=== PATIENT | male | born 1975 | race Caucasian/White ===

== ENCOUNTER → 2020-05-14 10:05 | Outpatient (CLI) | payer OTHER, SELFPAY ==
--- NOTE | ~2020-05-14 | XR_ITS ---
XR lumbar spine 2-3V 05/14/2020 10:47 Indication: Low back pain Procedure: 3 views lumbar spine Comparison: No prior studies for comparison. Findings: There is mild levocurvature of the lumbar spine. There is disc narrowing at L5-S1. No acute fracture, subluxation or dislocation. Pedicles intact. Sacral foramen are symmetric. No evidence for spondylolisthesis. Impression: 1: Mild lumbar spondylosis. Reviewed, dictated and finalized at location A. Impression: 1: Mild lumbar spondylosis.
== END ==
PROVIDERS: PCP Family Medicine; Visit Provider Physician Assistant
DX: M47.26 Other spondylosis with radiculopathy, lumbar region (principal)
CPT/HCPCS: 72100

== ENCOUNTER 2020-10-29 16:19 | Outpatient (CLI) | payer OTHER, SELFPAY | END 2020-10-29 16:20 | disposition home or self-care (01) | LOC: ANHCOVIDVC 16:19 | PROVIDERS: PCP Family Medicine | DX: Z23 Encounter for immunization (principal) | CPT/HCPCS: 0001A; 91300 ==

== ENCOUNTER 2020-11-19 16:16 | Outpatient (CLI) | payer OTHER, SELFPAY | END 2020-11-19 16:17 | disposition home or self-care (01) | LOC: ANHCOVIDVC 16:17 | PROVIDERS: PCP Family Medicine | DX: Z23 Encounter for immunization (principal) | CPT/HCPCS: 0002A; 91300 ==

== ENCOUNTER 2022-04-28 08:35 | Outpatient (CLI) | payer OTHER, SELFPAY ==
--- NOTE | 2022-04-28 08:50 | ECG_ITS ---
Measurements Intervals [place] Rate: 80 P: 40 OR: 166 QRS: 43 QRSD: 97 T: 38 QT: 345 QTc: 399 Interpretive Statements SINUS RHYTHM NORMAL ECG NO PREVIOUS ECG AVAILABLE FOR COMPARISON Electronically Signed On 04-28-2022 12:35:19 CDT by Kevin Hill D.O.
== END 2022-04-28 08:36 | disposition home or self-care (01) ==
LOC: ANHCARD 08:38
PROVIDERS: PCP Family Medicine; Visit Provider Family Medicine
DX: I45.4 Nonspecific intraventricular block (principal)
CPT/HCPCS: 93005

== ENCOUNTER → 2023-08-16 08:47 | Outpatient (CLI) | payer OTHER, SELFPAY ==
--- NOTE | ~2023-08-16 | US_ITS ---
EXAMINATION:US venous doppler LE RT INDICATION:Right leg pain TECHNIQUE: Multiple grayscale, color flow and Doppler images of the right lower extremity deep venous systems were obtained and reviewed. COMPARISON:No prior studies for comparison. FINDINGS: The common femoral, superficial femoral and popliteal veins demonstrate normal respiratory variation, augmentation and compressibility. Color flow is also seen within the posterior tibial, pe roneal, greater saphenous and profunda veins. IMPRESSION: 1: No lower extremity deep venous thrombosis. Reviewed, dictated and finalized at location L. RT [employer]
== END ==
PROVIDERS: PCP Physician Assistant Medical; Visit Provider Physician Assistant Medical
DX: M79.661 Pain in right lower leg (principal)
CPT/HCPCS: 93971

== ENCOUNTER 2024-01-04 07:46 | Outpatient (CLI) | payer OTHER, SELFPAY ==
--- NOTE | ~2024-01-04 | US_ITS ---
Limited Abdominal Sonogram: Real-time sonographic imaging of the right upper quadrant was performed. Clinical History: Abnormal findings of blood chemistry Findings: The liver appears echogenic, with no evidence of mass lesion or bile duct dilatation. Main portal vein demonstrates normal direction of flow. The gallbladder is well distended, and demonstrat es 4 mm gallbladder wall polyp. The common bile duct measures 3 mm. The visualized pancreas, aorta, and IVC are unremarkable. Right kidney measures 11.3 cm in length, without hydronephrosis. Impression: Diffuse fatty infiltration of liver. 4 mm gallbladder wall polyp. Reviewed, dictated and finalized at location M. Impression: Diffuse fatty infiltration of liver. 4 mm gallbladder wall polyp.
== END 2024-01-04 07:47 ==
PROVIDERS: PCP Family Medicine; Visit Provider Physician Assistant Medical
DX: R79.89 Other specified abnormal findings of blood chemistry (principal); K76.0 Fatty (change of) liver, not elsewhere classified; K82.4 Cholesterolosis of gallbladder
CPT/HCPCS: 76705

== ENCOUNTER 2025-02-06 08:13 | Outpatient (CLI) | payer OTHER, SELFPAY ==
--- NOTE | ~2025-02-06 | US_ITS ---
Limited ABDOMINAL ULTRASOUND (Doppler ultrasound interrogation techniques used as needed for this zuri m.) Ordering provider: Vivien Mariano MD History: . K82.4 - Cholesterolosis of gallbladder . Comparison: None. FINDINGS: PANCREAS: Not well visualized. PORTAL VEIN: Hepatopedal flow demonstrated. LIVER: Normal size and increased echogenicity.. No focal hepatic lesions or perihepatic fluid collect ions are identified. BILIARY DUCTS: No intra or extrahepatic biliary dilation. Common bile duct measures 3 mm in diameter which is normal for patient's age. GALLBLADDER: Echogenic foci which are not moving or shadowing.. No stones, sludge, gallbladder wall t hickening or pericholecystic fluid. Wall thickness is 0.14 cm. Negative sonographic Whitten's sign. RIGHT KIDNEY: Normal size. Measures 11.3 cm. No hydronephrosis, solid renal mass, renal calculi or pe rinephric fluid collections. No renal cysts. Inferior vena cava: Normal. Abdominal aorta: Normal. FREE FLUID: None visualized within the upper abdomen. IMPRESSION: Fat infiltration of the liver. Highly suggestive of adenomyomatosis of the gallbladder. Otherwise, no rmal right upper quadrant ultrasound. Reviewed, dictated and finalized at location A. IMPRESSION: Fat infiltration of the liver. Highly suggestive of adenomyomatosis of the gall bladder. Otherwise, normal right upper quadrant ultrasound.
== END 2025-02-06 08:14 | disposition home or self-care (01) ==
PROVIDERS: PCP Family Medicine; Visit Provider Family Medicine
DX: K82.4 Cholesterolosis of gallbladder (principal); K76.0 Fatty (change of) liver, not elsewhere classified
CPT/HCPCS: 76705

== ENCOUNTER 2025-08-19 09:55 | Outpatient (CLI) | payer OTHER, SELFPAY ==
--- NOTE | ~2025-08-19 | XR_ITS ---
EXAMINATION: XR lumbar spine 2-3V DATE: 08/19/2025 10:12 INDICATION: Lumbar spondylolysis. TECHNIQUE: Anteroposterior and lateral views of the lumbar spine, and cone-down lateral view of the lumbosacral junction were obtained. COMPARISON: 05/14/2020 FINDINGS: Alignment is normal. Vertebral body heights are normal. Mild disc height loss at L5-S1. Small degenerative endplate osteophytes anteriorly at the more cephalad lumbar spine without significant disc height loss. Mild to moderate lower lumbar predominant facet osteoarthritis. Mild bilateral hip osteoarthritis. IMPRESSION: 1. No significant change in mild lumbar spondylosis. Reviewed, dictated and finalized at location A. [employer]
== END 2025-08-19 09:56 | disposition home or self-care (01) ==
LOC: MICIMG 09:55
PROVIDERS: PCP Student in an Organized Health Care Education/Training Program; Visit Provider Student in an Organized Health Care Education/Training Program
DX: M43.06 Spondylolysis, lumbar region (principal)
CPT/HCPCS: 72100